=== PATIENT | male | born 1975 ===

== ENCOUNTER 2017-11-16 19:16 | Emergency (ER) | payer SELFPAY ==
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
== END 2017-11-16 19:40 ==
LOC: JD.ED 19:16
DX: F10.129 Alcohol abuse with intoxication, unspecified (principal)
CPT/HCPCS: 99283